=== PATIENT | female | born 1990 | race Caucasian/White ===

== ENCOUNTER 2017-08-10 19:54 | Inpatient (IN) | payer MEDICAID ==
[2017-08-10] MEDS: Lactated Ringer's 1,000 ML IV SCH ×3 (20:08→21:45)
[2017-08-10 20:18] VITALS: BMI 32.8
[2017-08-10] MEDS ORDERED: ceFAZolin 2 GM in Sodium Chloride 0.9% 100 ML IVPB ONE (20:19)
[2017-08-10] MEDS ORDERED: ceFAZolin IV 2 gm in Dextrose 2 GM/50 ML BAG IVPB ONE (20:22)
--- NOTE | 2017-08-10 20:23 | OBHP ---
Datetime: 08/10/2017 20:12 IP Adm Impression: , intrauterine ; No Active Labor IP Adm Impression Other: Oligohydramnios IP Admit Plan: Admit to unit; Initiate Section protocol Admit Comment, IP Provider: 27yo with IUP at 35.3wks and a h/o previous Section X2, re ports to the LND for admission and preparation for a repeat Section after an OB ultrasound f or wellbeing recorded an BLANCA of 4cm. Repeat Section had been recommeded by MFM. Pt cur rently denies any painful contractions, VB or LOF. 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 TOCO- None FHR- Category 1, Cx - 0 Assessment: IUP at 35wks Oligohydramnios Idiopathic thrombocytopenia. Plan As Per Dr Batres: Admit to LND Prepare for Delivery. Abdomen - PN: Normal Back - PN: Normal Lungs - PN: Normal Heart - PN: Normal Neurologic - PN: Normal General - PN: Normal Membranes, Provider: Intact Comments, ACOG Physical Exam: Abd: Soft, NT, Bs- present Fundal Height- 35cm Gestation - Est Wks by US: 35.3 IP Chief Complaint: Scheduled Section Dilatation, Provider: 0 Genitourinary Exam: Normal
[2017-08-10] MEDS ORDERED: Oxytocin 30 units/LR 500ML 30 U/500 ML BAG IV ONE (20:25)
[2017-08-10 20:42] LABS: HEMATOCRIT 34.5 % (34.0-47.0); MEAN CELL VOLUME 83.9 fl (81.0-99.0); MEAN CORPUSCULAR HEMOGLOBIN 26.5 pg (27.0-31.0); MEAN CORPUSCULAR HGB CONC 31.6 g/dL (33.0-37.0); RED CELL DISTRIBUTION WIDTH 15.1 % (11.5-14.5)
[2017-08-10 20:45] LABS: WHITE BLOOD COUNT 9.7 K/uL (4.8-10.8)
[2017-08-10] MEDS ORDERED: Oxytocin 30 UNITS in Sodium Chloride 0.9% 500 ML IV ONE (20:45)
[2017-08-10] MEDS ORDERED: ePHEDrine 50 mg/ml Inj ONE (21:12)
[2017-08-10] MEDS ORDERED: Succinylcholine 200 mg/10 ml Inj IV ONE (21:12)
[2017-08-10] MEDS ORDERED: Propofol 10 mg/ml Inj (20 ML) ONE (21:13)
[2017-08-10] MEDS ORDERED: Morphine 1 mg/ml preservative-free Inj(Duramorph) ONE (21:13)
--- NOTE | 2017-08-10 21:17 | OBADHP ---
Datetime: 08/10/2017 20:12 IP Adm Impression Other: Oligohydramnios Admit Comment, IP Provider: 27yo with IUP at 35.3wks and a h/o previous Section X2, re ports to the LND for admission and preparation for a repeat Section after an OB ultrasound f or wellbeing recorded an BLANCA of 4cm. Repeat Section had been recommeded by MFM. Pt cur rently denies any painful contractions, VB or LOF. 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 TOCO- None FHR- Category 1, Cx - 0 Assessment: IUP at 35wks Oligohydramnios Idiopathic thrombocytopenia. Plan As Per Dr Batres: Admit to LND Prepare for Delivery. Abdomen - PN: Normal Back - PN: Normal Lungs - PN: Normal Heart - PN: Normal Neurologic - PN: Normal General - PN: Normal Membranes, Provider: Intact Comments, ACOG Physical Exam: Abd: Soft, NT, Bs- present Fundal Height- 35cm Gestation - Est Wks by US: 35.3 IP Chief Complaint: Scheduled Section Dilatation, Provider: 0 Genitourinary Exam: Normal EGA AdmitDate IP: 35.2 IP Adm Impression: , intrauterine ; No Active Labor IP Admit Plan: Admit to unit; Initiate Section protocol
[2017-08-10] MEDS ORDERED: Bisacodyl 5mg EC Tab PO PRN (22:43)
[2017-08-10] MEDS ORDERED: Oxycodone/Acetaminophen 5/325 mg Tab PO PRN ×2 (22:43)
--- NOTE | 2017-08-10 22:43 | OBDS ---
DELIVERY PERSONNEL Delivery Doctor: Tc Batres MD Special Procedure Tech: Ma. Lou Steele RN Anesthesiologist: Maria Elena Cunningham MD MATERNAL INFORMATION Delivery Anesthesia: Spinal Maternal Complications: None Provider Comments: Surgeon: Dr. Batres Outer Diameter Technician: Dr. Monahan Pre-op: Previous x 1, 35 wks, oligo, IUGR, Lupus anticoaculant positive Findings: live male cephalic, 4lbs 12oz, 9/9, clear fluid, grossly nml tubes ovaries, place nta uterus Post-op: same EBL: 800mL Urine:300mL Anesthesia: spinal by Dr. Cunningham Complications: none Condition: stable Pathology: COrd blood and placenta LABOR SUMMARY EDC: 09/12/2017 00:00 No. Babies in Womb: 1 Attempted: No Labor Anesthesia: None LABOR INFORMATION Reason for Induction: Not Applicable Group B Beta Strep: Not Done Steroids Given: None Reason Steroids Not Administered: Not Applicable MEMBRANES Membranes Rupture Method: Artificial Rupture of Membranes: 08/10/2017 22:07 Length of Rupture (hrs): 0.00 Amniotic Fluid Color: Clear Amniotic Fluid Amount: Small Amniotic Fluid Odor: Normal STAGES OF LABOR Stage 3 hrs: 0 Stage 3 min: 1 CSECTION DELIVERY Primary Indication: Repeat Elective CSection Urgency: Elective CSection Incidence: Repeat Labor: No Labor Elective: N/A CSection Incision: Lower Uterine Transverse BABY A INFORMATION Delivery Date/Time: 08/10/2017 22:07 Method of Delivery: Born in Route : No : N/A Forceps: N/A Vacuum Extraction: N/A Shoulder Dystocia : No SHOULDER DYSTOCIA BABY A Infant Delivery Date/Time: 08/10/2017 22:07 PRESENTATION/POSITION BABY A Presentation: Cephalic PLACENTA INFORMATION BABY A Placenta Delivery Time : 08/10/2017 22:08 Placenta Method of Delivery: Spontaneous Placenta Status: Delivered SCORES BABY A Heart Rate 1 min: >100 bpm Resp Effort 1 min: Good Cry Reflex Irritability 1 min: Cough or Sneeze or Pulls Away Muscle Tone 1 min: Active Motion Color 1 min: Body [place], Extremities Blue Resuscitation Effort 1 min: Tactile Stimulation SCORE 1 MIN: 9 Heart Rate 5 min: >100 bpm Resp Effort 5 min: Good Cry Reflex Irritability 5 min: Cough or Sneeze or Pulls Away Muscle Tone 5 min: Active Motion Color 5 min: Body [place], Extremities Blue Resuscitation Effort 5 min: N/A SCORE 5 MIN: 9 INFORMATION BABY A Gestational Age at Delivery: 35.0 Gestational Status: Outcome : Liveborn Condition : Stable Sex: Male IDENTIFICATION/MEDS BABY A ID Band Number: [id number] ID Band Location: Left Leg; Left Arm WEIGHT/LENGTH BABY A Birthweight (gms): 2165 Weight (lb): 4 Weight (oz): 12 Infant Length Inches: 18.00 Infant Length cms: 45.7 CORD INFORMATION BABY A No. Cord Vessels: 3 Cord Blood Taken: Yes Suction: Mouth; Nose
[2017-08-10] MEDS ORDERED: DiphenhydrAMINE 50 mg/ml Inj IVP PRN (22:56)
[2017-08-11] MEDS ORDERED: DiphenhydrAMINE 50 mg/ml Inj IVP PRN (03:24)
[2017-08-11] MEDS ORDERED: Bisacodyl 5mg EC Tab PO PRN (03:24)
[2017-08-11 03:35] VITALS: RESP 20
[2017-08-11] MEDS ORDERED: Simethicone 80 mg Chewtab PO SCH (04:00)
[2017-08-11] MEDS: Simethicone 80 mg Chewtab PO SCH ×5 (04:14→22:00)
[2017-08-11 06:50] LABS: HEMATOCRIT 30.3 % (34.0-47.0); MEAN CELL VOLUME 82.6 fl (81.0-99.0); MEAN CORPUSCULAR HEMOGLOBIN 26.8 pg (27.0-31.0); MEAN CORPUSCULAR HGB CONC 32.5 g/dL (33.0-37.0); RED CELL DISTRIBUTION WIDTH 15.3 % (11.5-14.5); WHITE BLOOD COUNT 7.6 K/uL (4.8-10.8)
[2017-08-11 06:57] LABS: GFR AFRICAN-AMERICAN > 60
[2017-08-11] MEDS: Oxycodone/Acetaminophen 5/325 mg Tab PO PRN (08:17)
[2017-08-11] MEDS: Multivitamin With Minerals Tab PO SCH (08:18)
[2017-08-11] MEDS: Enoxaparin 40 mg Syringe SC SCH (08:25)
--- NOTE | 2017-08-11 08:49 | OBPPN ---
Datetime: 08/11/2017 08:42 PP Pain Prov: Within normal limits PP Nausea Prov: Denies PP Flatus Prov: No PP BM Prov: No PP Breasts Prov: Not Done PP Abdomen/Uterus Prov: Normal PP Lochia Prov: Normal PP Extremities Prov: Normal PP C/S Incision Prov: Normal PP Progress Prov: Normal PP Impression Prov: Normal progression PP Plan Prov: Continue present management PP Progress Note Prov: POD 1 s/p repeat c/s at 35 wks for oligo, IUGR, doing well, breast and bottle feeding. Bandage to be removed today Discontinue medellin Advance diet as tolerated OOB today Pt to receive lovenox daily for 6 weeks Vital Signs Provider PP: Reviewed
[2017-08-11] MEDS ORDERED: Enoxaparin 40 mg Syringe SC SCH (09:00)
[2017-08-11] MEDS ORDERED: Multivitamin With Minerals Tab PO SCH (09:00)
--- NOTE | 2017-08-11 09:55 | OP ---
PROCEDURE DATE: 08/10/2017 PREOPERATIVE DIAGNOSIS: Previous section x1, 35-weeker, oligohydramnios, intrauterine growth retardation, and lupus anticoagulant positive antibody. POSTOPERATIVE DIAGNOSIS: Previous section x1, 35-weeker, oligohydramnios, intrauterine growth retardation, and lupus anticoagulant positive antibody. PROCEDURE: Repeat low transverse section. SURGEON: Dalila Batres MD. UNIX SYSTEM ADMINISTRATOR: Freeman Monahan MD FINDINGS: Large male 4 pounds 12 ounces, cephalic presentation, clear fluid, grossly normal tubes, ovaries, placenta, uterus. ESTIMATED BLOOD LOSS: 800 mL URINE OUTPUT: 300 mL TOTAL FLUID INPUT: 1800 mL COMPLICATIONS: None. CONDITION: Stable. TYPE OF ANESTHESIA: Spinal. ANESTHESIA ADMINISTERED BY: Joshua Cunningham MD. PATHOLOGY SPECIMEN: Cord blood and placenta. INDICATION: This is a G7, P3-0-4-3 at 35 weeks plus with evidence of BLANCA of 4 on ultrasound at the office. The patient was advised by [facility] to be delivered via repeat . Returned to labor and delivery for delivery. The patient had had a history in the past of ITP. At present, patient had an admitting platelet of about 270. The patient, in her workup, was found to be positive for lupus anticoagulant antibody. The patient did not take any anticoagulation during this , but did have evidence of IUGR on the ultrasound as well. Otherwise, one previous and 2 other previous vaginal deliveries for delivery. No other complications in this or other pregnancies. The patient is advised on risks and benefits of a repeat including risk of bleeding, infection, damage to surrounding organs such as bowel, bladder, ureter, and uterus. Patient verbalized understanding and signed informed consent. DESCRIPTION OF PROCEDURE: The patient was taken to the OR. Ancef was given preoperatively. SCDs were placed bilaterally. The patient was prepped and draped in sterile fashion. A Pfannenstiel incision was made through the previous incision with a scalpel and carried through to the underlying layer of fascia with the scalpel. The fascia was incised in the midline and carried through to the muscle with a Bovie. The incision was extended superiorly and inferiorly with good visualization of all underlying organs. We tented up with Monserrat clamps, we tented up off the pyramidalis muscle, and in similar fashion we tended up off of the rectus abdominus muscles, and dissected the fascia off of the rectus abdominus muscles. We took Allis clamps and tended up the midline, dissected carefully with the scalpel, and carried through to the uterus and dissected superiorly and inferiorly with good visualization of the uterus. The lower uterine segment was then incised in a transverse fashion with the scalpel. The lower uterine cavity was entered bluntly and the incision was extended bluntly. Clear fluid was noted. The infant's head was delivered atraumatically, followed by shoulders the rest of the infant was delivered atraumatically. Cord was clamped and cut. Mouth and nose were suctioned. The was handed off to the awaiting pediatric team. The placenta was extracted manually. The uterus was exteriorized, cleared of all clots. Uterine incision was then repaired with an 0 Vicryl suture. Hemostasis was noted at the hysterotomy site. The uterus was returned to the abdomen. Gutters were cleared off all clots. Uterus was again inspected and a small bleeding site was tamponaded with 0 Monocryl suture, and small bleeders were cauterized with the Bovie. The peritoneum was closed with a 2-0 Monocryl. The fascia was closed with an 0 Vicryl suture. Subcutaneous site was reapproximated with plain gut sutures and the skin was closed with 4-0 Monocryl. Sponge, lap, and needle counts were correct x4. The patient was taken to recovery room in stable condition. There were no other complications. The patient was started on Lovenox prophylactic dose 12 hours postoperatively. Dalila Batres MD
[2017-08-12] MEDS: Simethicone 80 mg Chewtab PO SCH ×3 (04:52→17:19)
[2017-08-12] MEDS: Multivitamin With Minerals Tab PO SCH (09:00)
[2017-08-12] MEDS: Enoxaparin 40 mg Syringe SC SCH (09:14)
--- NOTE | 2017-08-12 12:00 | OBPPN ---
Datetime: 08/12/2017 11:59 PP Pain Prov: Within normal limits PP Nausea Prov: Denies PP Flatus Prov: Yes PP Breasts Prov: Not Done PP Heart Prov: Normal PP Lungs Prov: Normal PP Abdomen/Uterus Prov: Not Done PP Lochia Prov: Not Done PP Vulva/Perineum Prov: Not Done PP CVA Tenderness Prov: Normal PP Extremities Prov: Normal PP C/S Incision Prov: Normal PP Impression Prov: Normal progression PP Plan Prov: Continue present management PP Progress Note Prov: Patient doing well pain well controlled Vital signs stable afebrile Uterus firm below the umbilicus Incision clean dry and intact Postoperative day #2 Ambulation, regular diet, analgesics as needed Vital Signs Provider PP: Reviewed
[2017-08-12] MEDS: Oxycodone/Acetaminophen 5/325 mg Tab PO PRN ×2 (15:34→20:21)
[2017-08-13] MEDS: Oxycodone/Acetaminophen 5/325 mg Tab PO PRN ×2 (03:39→09:06)
[2017-08-13] MEDS: Multivitamin With Minerals Tab PO SCH (09:05)
[2017-08-13] MEDS: Enoxaparin 40 mg Syringe SC SCH (09:05)
[2017-08-13 19:14] VITALS: BP 125/72; PULSE 92; TEMP 98.2; O2SAT 99
--- NOTE | 2017-08-14 07:16 | OBPPN ---
Datetime: 08/13/2017 08:49 PP Pain Prov: Within normal limits PP Nausea Prov: Denies PP Flatus Prov: Yes PP BM Prov: Yes PP Breasts Prov: Normal PP Heart Prov: Normal PP Lungs Prov: Normal PP Abdomen/Uterus Prov: Normal PP Lochia Prov: Normal PP Vulva/Perineum Prov: Normal PP CVA Tenderness Prov: Normal PP Extremities Prov: Normal PP C/S Incision Prov: Normal PP Progress Prov: Normal PP Impression Prov: Normal progression PP Plan Prov: Discharge PP Progress Note Prov: H/H 05/23 A: C/S day 3 discharge home Vital Signs Provider PP: Reviewed; Within Normal Limits
--- NOTE | 2017-08-14 07:16 | OBDCSUM ---
Datetime: 08/13/2017 10:58 Discharge Diagnosis, Provider: Term Delivered Discharge Comment, Provider: spoke with Dr Hopper - ash Lovenox 4mg SC Qd for 6w
== END 2017-08-13 13:30 | disposition home or self-care (01) | DRG 370 ==
LOC: H.EROB2 19:54 → H.L&D 20:19 → H.OB/GYN 08-11 02:35
PROVIDERS: ADMIT Obstetrics & Gynecology; ATTEND Obstetrics & Gynecology
PROC: 10D00Z1 Extraction of Products of Conception, Low, Open Approach (ICD-10-PCS; principal; 2017-08-10)
PROC: 4A1HXCZ Monitoring of Products of Conception, Cardiac Rate, External Approach (ICD-10-PCS; 2017-08-10)
DX: O34.211 Maternal care for low transverse scar from previous cesarean delivery (principal); D69.3 Immune thrombocytopenic purpura; D68.62 Lupus anticoagulant syndrome; O60.14X0 Preterm labor third trimester with preterm delivery third trimester, not applicable or unspecified; O41.03X0 Oligohydramnios, third trimester, not applicable or unspecified; O99.12 Other diseases of the blood and blood-forming organs and certain disorders involving the immune mechanism complicating childbirth; O36.5930 Maternal care for other known or suspected poor fetal growth, third trimester, not applicable or unspecified; Z37.0 Single live birth; N85.8 Other specified noninflammatory disorders of uterus; Z3A.35 35 weeks gestation of pregnancy

== ENCOUNTER 2017-12-09 09:23 | Day surgery (SDC) | payer MEDICAID ==
[2017-12-08 13:17] VITALS: BMI 32.5
[2017-12-09] MEDS ORDERED: Propofol 10 mg/ml Inj (20 ML) ONE (10:25)
[2017-12-09] MEDS ORDERED: Succinylcholine 200 mg/10 ml Inj IV ONE (10:26)
[2017-12-09] MEDS ORDERED: Rocuronium 10 mg/ml (5 ml) ONE (10:26)
[2017-12-09] MEDS ORDERED: ePHEDrine 50 mg/ml Inj ONE (10:57)
[2017-12-09] MEDS ORDERED: Midazolam 2 MG/2 ML VIAL ONE (10:57)
[2017-12-09] MEDS ORDERED: Neostigmine 1:1000 (1 mg/ml) Inj ONE (11:17)
[2017-12-09] MEDS ORDERED: Lidocaine 4% (Laryng-O-Jet) Kit MM ONE (11:17)
[2017-12-09 11:18] LABS: HEMOGLOBIN 10.6 g/dL (12.0-16.0); MEAN CELL VOLUME 79.2 fl (81.0-99.0); MEAN CORPUSCULAR HEMOGLOBIN 25.9 pg (27.0-31.0); MEAN CORPUSCULAR HGB CONC 32.7 g/dL (33.0-37.0); RBC 4.09 Mil/uL (3.80-5.20); RED CELL DISTRIBUTION WIDTH 15.4 % (11.5-14.5); WHITE BLOOD COUNT 5.7 K/uL (4.8-10.8)
[2017-12-09] MEDS ORDERED: Bupivacaine 0.5% Inj(30mL) ONE (11:21)
[2017-12-09] MEDS ORDERED: Lactated Ringer's 1,000 ML IV ONE (11:36)
[2017-12-09] MEDS ORDERED: Bupivacaine 0.5% Inj(30mL) IJ ONE (11:40)
[2017-12-09] MEDS ORDERED: Lactated Ringer's 1,000 ML IV SCH (12:15)
--- NOTE | 2017-12-09 13:12 | CP.SDSHP ---
Same Day Surgery H & P - Allergies Allergies: Allergies No Known Allergies Allergy (Verified 12/09/17 09:33) - Physical Exam Vital Signs: Vital Signs 12/09/17 12/09/17 12/09/17 10:10 10:14 12:07 Temperature 98 F 97 F L Pulse Rate 72 72 66 Respiratory 18 18 Rate Blood Pressure 113/70 134/90 O2 Sat by Pulse 100 100 Oximetry 12/09/17 12/09/17 12/09/17 12:20 12:35 12:50 Temperature 97.1 F L 97.2 F L 97.5 F L Pulse Rate 64 65 74 Respiratory 18 18 20 Rate Blood Pressure 131/74 116/79 122/75 O2 Sat by Pulse 100 100 100 Oximetry 12/09/17 13:05 Temperature Pulse Rate 65 Respiratory 20 Rate Blood Pressure 115/64 O2 Sat by Pulse 98 Oximetry Short Stay Discharge - Short Stay Discharge Admitting Diagnosis/Reason for Visit: Z30.2 Referrals: Seamus William MD [Primary Care Provider] - Follow-up: f/u one weeek NPV percocet for pain
[2017-12-09 14:19] VITALS: RESP 18
[2017-12-09] MEDS ORDERED: Oxycodone/Acetaminophen 5/325 mg Tab PO ONE ×2 (14:55→15:05)
--- NOTE | 2017-12-09 15:24 | OP ---
PROCEDURE DATE: PREOPERATIVE DIAGNOSIS: Voluntary sterilization. POSTOPERATIVE DIAGNOSIS: Voluntary sterilization. OPERATION PERFORMED: Operative laparoscopy, transection of fallopian tube, and cauterization of fallopian tube. SURGEON: Marco A Harper MD TYPE OF ANESTHESIA: General. ANESTHESIA ADMINISTERED BY: Suzanne Moralez MD INTRAVENOUS FLUID INTAKE: The patient received approximately 800 mL of D5, LR intraoperatively. URINE OUTPUT: The patient was straight cath prior to starting the procedure. COMPLICATIONS: There were no complications. DESCRIPTION OF PROCEDURE: After informed consent was obtained, the patient was taken to the operating room where she was given general anesthesia. She was then prepped and draped in a modified dorsal lithotomy position, the legs were placed in Dolphin stirrups. An speculum was inserted into the vagina. The cervix was visualized and grasped with a single tooth tenaculum. The cervix was then gently dilated and HUMI uterine manipulator was inserted into the uterine cavity, and needs to manipulate the uterus. Attention was then turned to umbilical folds where a 5 mm incision was made. A Veress needle was induced to the abdominal cavity. Placement was confirmed with the fluid filled syringe. The abdomen was then insufflated to 15 mm/Hg and a 5 mm port was introduced into the abdominal cavity. The abdomen was surveyed with the findings noted above. Attention was then turned to approximate 3 cm superior to the left anterior iliac crest. Marcaine was infused and a 5 mm incision was made. The port was introduced into the abdominal cavity under direct visualization. Attention was then turned to the left fallopian tube, but was serially coagulated and then transected with ligature. A similar procedure was performed on the left. Photographs were taken for documentation. Hemostasis was noted. All instruments were then removed from the abdomen and the incisions were closed with Dermabond. All sponge, lap, needle and instrument counts were correct x2. The patient was taken to the recovery room in awake and stable condition. Marco A Harper MD
[2017-12-09 16:08] VITALS: BP 120/70; PULSE 74; TEMP 98; O2SAT 98
== END 2017-12-09 16:10 | disposition home or self-care (01) ==
LOC: H.OPSURG 09:23
PROVIDERS: ATTEND Obstetrics & Gynecology Gynecology
DX: Z30.2 Encounter for sterilization (principal)
CPT/HCPCS: 36415; 58600; 58670; 85027; 86850; 86900; J0330; J2001; J2250; J2704; J2710; J3010; J7120